=== PATIENT | female | born 2000 | race Hispanic/Latino ===

== ENCOUNTER 2024-01-23 10:54 | Emergency (ER) | payer BC ==
[~2024-01-23] VITALS: Ht 152.4 cm; Wt 61.7 kg
[2024-01-23] MEDS ORDERED: CLOT15CR23 TP (11:53)
[2024-01-23 12:27] VITALS: BP 121/66; PULSE 69; RESP 20; TEMP 97.9; O2SAT 99
== END 2024-01-23 12:28 | disposition home or self-care (01) ==
LOC: EDH 10:54
DX: R21 Rash and other nonspecific skin eruption (principal)
CPT/HCPCS: 99282

== ENCOUNTER 2024-11-14 19:57 | Emergency (ER) | payer BC ==
[~2024-11-14] VITALS: Ht 152.4 cm; Wt 56.2 kg
[~2024-11-14 19:57] MED LIST: CLOT15CR23 TP
[2024-11-14 19:59] VITALS: BP 117/81; PULSE 94; RESP 20; TEMP 98.3
[2024-11-14] MEDS: BACITRACIN 1 EACH PACKET TP ONE (20:27)
[2024-11-14] MEDS ORDERED: BACI30OI6 TP (20:48)
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
== END 2024-11-14 21:03 | disposition home or self-care (01) ==
LOC: EDH 19:57
DX: T23.021A Burn of unspecified degree of single right finger (nail) except thumb, initial encounter (principal); Z79.899 Other long term (current) drug therapy; X17.XXXA Contact with hot engines, machinery and tools, initial encounter; Y93.89 Activity, other specified; Y92.89 Other specified places as the place of occurrence of the external cause; Y99.8 Other external cause status
CPT/HCPCS: 90471; 90714; 99284